=== PATIENT | female | born 1965 | race African-American/Black ===

== ENCOUNTER 2016-12-29 07:06 | Emergency (ER) | payer BC ==
[~2016-12-29] VITALS: Ht 170.2 cm; Wt 70.0 kg
[~2016-12-29 07:06] MED LIST: AMOX875T PO; METO25 PO
[2016-12-29 07:15] VITALS: BP 162/92; PULSE 78; RESP 16; TEMP 98.4; O2SAT 99
[2016-12-29] MEDS ORDERED: CLON.1 PO ×2 (07:20→07:26)
[2016-12-29] MEDS ORDERED: METO25TA3 PO ×2 (07:20→07:26)
[2016-12-29] MEDS ORDERED: LORA-392 PO (07:26)
--- NOTE | 2016-12-29 07:26 | PD ---
HPI Chief Complaint: Anxiety Time Seen by Provider: 07:19 Travel History International Travel<30 days: No Contact w/Intl Traveler<30days: No Traveled to known affect area: No History of Present Illness HPI 51-year-old female complains of anxiety and mental stress. Patient states that the condition has been building up recently. Patient denies any suicidal or homicidal ideation. Patient denies any headache. Patient denies any chest pain or shortness of breath. Patient denies abdominal pain. Patient denies any focal weakness or numbness of the extremity. Patient has history hypertension and taking clonidine and Lopressor. PFSH Past Medical History Cardiovascular Problems: Yes (HTN) Diminished Hearing: No Hypertension: Yes Immunizations Current: Yes Menopausal: Yes : 2 Para: 2 Social History Alcohol Use: Yes ( daily beer) Tobacco Use: No Substance Use: No Allergies-Medications (Allergen,Severity, Reaction): Coded Allergies: acetaminophen (Verified Allergy, Unknown, 12/29/16) codeine (Verified Allergy, Unknown, Itching, 12/29/16) hydromorphone (Verified Allergy, Unknown, 12/29/16) oxycodone (Verified Allergy, Unknown, 12/29/16) Reported Meds & Prescriptions Reported Meds & Active Scripts Active Ativan (Lorazepam) 0.5 Mg Tab 0.5 Mg PO Q8H PRN Metoprolol Tartrate 25 Mg Tab 25 Mg PO DAILY Catapres (Clonidine) 0.1 Mg Tab 0.1 Mg PO ONCE Review of Systems General / Constitutional: No: Fever Eyes: No: Visual changes HENT: No: Headaches Cardiovascular: No: Chest Pain or Discomfort Respiratory: No: Shortness of Breath Gastrointestinal: No: Abdominal Pain Genitourinary: No: Dysuria Musculoskeletal: No: Pain Skin: No Rash Neurologic: No: Weakness Psychiatric: No: Depression Endocrine: No: Polydipsia Hematologic/Lymphatic: No: Easy Bruising Physical Exam Narrative GENERAL: Well-nourished, well-developed patient. SKIN: Focused skin assessment warm/dry. HEAD: Normocephalic. EYES: No scleral icterus. No injection or drainage. NECK: Supple, trachea midline. No JVD or lymphadenopathy. CARDIOVASCULAR: Regular rate and rhythm without murmurs, gallops, or rubs. RESPIRATORY: Breath sounds equal bilaterally. No accessory muscle use. GASTROINTESTINAL: Abdomen soft, non-tender, nondistended. MUSCULOSKELETAL: No cyanosis, or edema. BACK: Nontender without obvious deformity. No CVA tenderness. Neurologic exam normal. Data Data Last Documented VS Vital Signs Date Time Temp Pulse Resp B/P Pulse Ox O2 Delivery O2 Flow Rate FiO2 12/29/16 07:15 98.4 78 16 162/92 99 MDM Medical Decision Making Medical Screen Exam Complete: Yes Emergency Medical Condition: Yes Differential Diagnosis Differential diagnosis including anxiety, adjustment disorder. Narrative Course 51-year-old female with anxiety. Patient's doing fine now. Patient does not want to see a counselor. Diagnosis Primary Impression: Anxiety Patient Instructions: General Instructions Additional Instructions: Ativan as needed. Follow-up with personal physician. Return as needed. Med/Other Pt SpecificInfo: Prescription(s) given Scripts Lorazepam (Ativan)0.5 Mg Tab0.5 Mg PO Q8H PRN (ANXIETY AND/OR AGITATION) #15 TAB Ref 0 Prov:Irving Looney MD 12/29/16 Metoprolol Tartrate 25 Mg Tab25 Mg PO DAILY #30 TAB Ref 0 Prov:Irving Looney MD 12/29/16 Clonidine (Catapres)0.1 Mg Tab0.1 Mg PO ONCE #60 TAB Ref 0 Prov:Irving Looney MD 12/29/16 Disposition: 01 DISCHARGE HOME Condition: Stable Irving Looney MD Dec 29, 2016 07:26
== END 2016-12-29 07:45 | disposition home or self-care (01) ==
LOC: NEPE 07:06
DX: F41.9 Anxiety disorder, unspecified (principal); I10 Essential (primary) hypertension; Z88.5 Allergy status to narcotic agent
CPT/HCPCS: 99284

== ENCOUNTER 2017-06-10 16:28 | Emergency (ER) | payer BC ==
[~2017-06-10] VITALS: Ht 170.2 cm; Wt 75.0 kg
[~2017-06-10 16:28] MED LIST changes: -AMOX875T PO; +CLON.1 PO; +LORA-392 PO; -METO25 PO; +METO25TA3 PO
[2017-06-10 16:30] VITALS: BP 210/100; PULSE 90; RESP 22; TEMP 98.4; O2SAT 98
[2017-06-10] MEDS ORDERED: SODIUM CHLOR 0.9% 1000 ML INJ 1,000 ML IV SCH (17:06)
[2017-06-10] MEDS ORDERED: SODIUM CHLORIDE 0.9% FLUSH 10 ML FLUSH IV FLUSH PRN (17:15)
--- NOTE | 2017-06-10 17:31 | PD ---
HPI Chief Complaint: Numbness/Tingling Time Seen by Provider: 16:51 Travel History International Travel<30 days: No Contact w/Intl Traveler<30days: No Traveled to known affect area: No History of Present Illness HPI 52-year-old Afro[place] female presents the emergency department with chest discomfort, and nausea and vomiting since this morning. Patient denies fever, chills, or other symptoms. Patient has history of anxiety. Was concerned she had bilateral upper arm tingling after vomiting. She does admit to hyperventilating. She continues to have generalized abdominal discomfort, nausea, and vomiting once in triage. Patient denies headache, sore throat, upper respiratory symptoms. Patient is allergic to acetaminophen, codeine, hydromorphone, and oxycodone. PFSH Past Medical History Anxiety: Yes Cardiovascular Problems: Yes (HTN) Diminished Hearing: No Hypertension: Yes Immunizations Current: Yes ?: Not Menopausal: Yes : 2 Para: 2 Past Surgical History Surgical History: No Previous Surgery Social History Alcohol Use: Yes ( daily beer) Tobacco Use: Yes (a pack a day ) Substance Use: No Allergies-Medications (Allergen,Severity, Reaction): Coded Allergies: acetaminophen (Verified Allergy, Unknown, 06/10/17) codeine (Verified Allergy, Unknown, Itching, 06/10/17) hydromorphone (Verified Allergy, Unknown, 06/10/17) oxycodone (Verified Allergy, Unknown, 06/10/17) Reported Meds & Prescriptions Reported Meds & Active Scripts Active Phenergan (Promethazine HCl) 25 Mg Tablet 25 Mg PO Q6H PRN Catapres (Clonidine) 0.1 Mg Tab 0.1 Mg PO ONCE Metoprolol Tartrate 25 Mg Tab 25 Mg PO DAILY Review of Systems Except as stated in HPI: all other systems reviewed are Neg General / Constitutional: No: Fever, Chills Eyes: No: Visual changes HENT: No: Headaches, Vertigo, Lightheadedness, Sore Throat, Rhinitis, Rhinorrhea, Congestion, Nosebleed, Neck Stiffness, Neck Pain, Dental Difficulties, Earache Cardiovascular: Positive: Chest Pain or Discomfort, No: Palpitations, Irregular Rhythm, Tachycardia, Diaphoresis, Syncope, Varicosities, Edema, Varicosities, Claudication Respiratory: No: Cough, Shortness of Breath, Wheezing Gastrointestinal: Positive: Nausea, Vomiting, No: Diarrhea, Abdominal Pain Genitourinary: No: Dysuria Musculoskeletal: No: Pain Skin: No Rash Neurologic: Positive: Paresthesia, No: Weakness Psychiatric: Positive: Anxiety, No: Depression, Suicidal Ideations, Homicidal Ideation Endocrine: No: Polydipsia Hematologic/Lymphatic: No: Easy Bruising Physical Exam Narrative GENERAL: Patient is extremely anxious and histrionic but otherwise no acute distress. SKIN: Warm and dry. Normal color. Normal turgor. No diaphoresis. HEAD: Atraumatic. Normocephalic. EYES: Pupils equal and round. No scleral icterus. No injection or drainage. ENT: No nasal bleeding or discharge. Mucous membranes pink and moist. Pharynx is clear. Airway is patent. NECK: Trachea midline. Supple and nontender.. CARDIOVASCULAR: Regular rate and rhythm. RESPIRATORY: No accessory muscle use. Clear to auscultation. Breath sounds equal bilaterally. GASTROINTESTINAL: Abdomen soft, mild to moderate diffuse tenderness, nondistended. Hepatic and splenic margins not palpable. No CVA tenderness MUSCULOSKELETAL: Extremities without clubbing, cyanosis, or edema. No obvious deformities. NEUROLOGICAL: Awake and alert. No obvious cranial nerve deficits. Motor grossly within normal limits. Five out of 5 muscle strength in the arms and legs. Normal speech. PSYCHIATRIC: Patient anxious; insight and judgment normal. Data Data Last Documented VS Vital Signs Date Time Temp Pulse Resp B/P (MAP) Pulse Ox O2 Delivery O2 Flow Rate FiO2 06/10/17 20:52 91 18 149/71 (97) 97 Room Air 06/10/17 16:30 98.4 Orders Orders Complete Blood Count With Diff (06/10/17 17:06) Comprehensive Metabolic Panel (06/10/17 17:06) Lipase (06/10/17 17:06) Prothrombin Time / Inr (Pt) (06/10/17 17:06) Act Partial Throm Time (Ptt) (06/10/17 17:06) Urinalysis - C+S If Indicated (06/10/17 17:06) Abdomen, Flat & Upright (06/10/17 ) Iv Access Insert/Monitor (06/10/17 17:06) Ecg Monitoring (06/10/17 17:06) Oximetry (06/10/17 17:06) Sodium Chlor 0.9% 1000 Ml Inj (Ns 1000 M (06/10/17 17:06) Sodium Chloride 0.9% Flush (Ns Flush) (06/10/17 17:15) Chest, Single Ap (06/10/17 17:06) Ckmb (Isoenzyme) Profile (06/10/17 17:06) Magnesium (Mg) (06/10/17 17:06) Troponin I (06/10/17 17:06) Lorazepam Inj (Ativan Inj) (06/10/17 17:45) Ondansetron Inj (Zofran Inj) (06/10/17 17:45) Hydralazine Inj (Apresoline Inj) (06/10/17 18:15) CKMB (06/10/17 17:20) CKMB% (06/10/17 17:20) Lorazepam Inj (Ativan Inj) (06/10/17 18:45) Prochlorperazine Inj (Compazine Inj) (06/10/17 18:45) Ckmb (Isoenzyme) Profile (06/10/17 19:34) Comprehensive Metabolic Panel (06/10/17 19:34) Troponin I (06/10/17 19:34) CKMB (06/10/17 20:00) CKMB% (06/10/17 20:00) Labs Laboratory Tests Test 06/10/17 17:20 06/10/17 18:20 06/10/17 20:00 White Blood Count 9.3 TH/MM3 Red Blood Count 4.20 MIL/MM3 Hemoglobin 13.4 GM/DL Hematocrit 37.0 % Mean Corpuscular Volume 88.0 FL Mean Corpuscular Hemoglobin 31.8 PG Mean Corpuscular Hemoglobin Concent 36.1 % Red Cell Distribution Width 13.5 % Platelet Count 248 TH/MM3 Mean Platelet Volume 7.8 FL Neutrophils (%) (Auto) 75.5 % Lymphocytes (%) (Auto) 17.6 % Monocytes (%) (Auto) 6.4 % Eosinophils (%) (Auto) 0.2 % Basophils (%) (Auto) 0.3 % Neutrophils # (Auto) 7.0 TH/MM3 Lymphocytes # (Auto) 1.6 TH/MM3 Monocytes # (Auto) 0.6 TH/MM3 Eosinophils # (Auto) 0.0 TH/MM3 Basophils # (Auto) 0.0 TH/MM3 CBC Comment AUTO DIFF Differential Comment AUTO DIFF CONFIRMED Platelet Estimate NORMAL Platelet Morphology Comment NORMAL Spherocytes 2+ Stomatocytes 1+ Prothrombin Time 10.4 SEC Prothromb Time International Ratio 1.0 RATIO Activated Partial Thromboplast Time 25.9 SEC Blood Urea Nitrogen 9 MG/DL 8 MG/DL Creatinine 0.60 MG/DL 0.55 MG/DL Random Glucose 73 MG/DL 79 MG/DL Total Protein 7.8 GM/DL 7.3 GM/DL Albumin 3.9 GM/DL 3.5 GM/DL Calcium Level 8.7 MG/DL 8.6 MG/DL Magnesium Level 1.8 MG/DL Alkaline Phosphatase 107 U/L 99 U/L Aspartate Amino Transf (AST/SGOT) 35 U/L 33 U/L Alanine Aminotransferase (ALT/SGPT) 31 U/L 27 U/L Total Bilirubin 0.3 MG/DL 0.4 MG/DL Sodium Level 132 MEQ/L 136 MEQ/L Potassium Level 3.6 MEQ/L 3.7 MEQ/L Chloride Level 96 MEQ/L 101 MEQ/L Carbon Dioxide Level 24.5 MEQ/L 25.1 MEQ/L Anion Gap 12 MEQ/L 10 MEQ/L Estimat Glomerular Filtration Rate 127 ML/MIN 140 ML/MIN Total Creatine Kinase 430 U/L 434 U/L Creatine Kinase MB 3.9 NG/ML 4.0 NG/ML Creatine Kinase MB % 0.9 % 0.9 % Troponin I LESS THAN 0.02 NG/ML LESS THAN 0.02 NG/ML Lipase 94 U/L Urine Color YELLOW Urine Turbidity CLEAR Urine pH 5.0 Urine Specific [place] 1.007 Urine Protein TRACE mg/dL Urine Glucose (UA) NEG mg/dL Urine Ketones NEG mg/dL Urine Occult Blood TRACE Urine Nitrite NEG Urine Bilirubin NEG Urine Urobilinogen LESS THAN 2.0 MG/DL Urine Leukocyte Esterase NEG Urine WBC LESS THAN 1 /hpf Urine Squamous Epithelial Cells 1 /hpf Urine Hyaline Casts 1 /lpf Urine Mucus FEW /lpf Microscopic Urinalysis Comment CULT NOT INDICATED MDM Medical Decision Making Medical Screen Exam Complete: Yes Emergency Medical Condition: Yes Medical Record Reviewed: Yes Differential Diagnosis Nausea vomiting. Anxiety. Cardiac syndrome. Narrative Course Patient is medically stable at time of exam. IV access was obtained and labs ordered including CBC, CMP, lipase, urinalysis, and cardiac panel. EKG is ordered showing a normal sinus rhythm without ST changes. This is reviewed with Dr. Nelson. Chest x-ray is ordered as well as abdominal flat and upright. Patient is given 1 mg lorazepam IV as well as 1 mg Zofran IV as well as 1000 mL normal saline bolus. Chest x-ray is unremarkable. Abdominal films unremarkable. CBC is unremarkable. Coag studies are normal. CMP shows sodium 132, chloride 96, random glucose 73, BUN/creatinine are normal. Total creatinine kinase is 4:30, CK-MB is 3.9, first troponin is less than 0.02. Urinalysis is unremarkable. She was given hydralazine 10 mg IV for her blood pressure. Patient given additional lorazepam 2 mg IV as well as Compazine 5 mg IV for ongoing nausea and dry heaving, and anxiety. Patient is unable to sleep and rest comfortably. Patient discussed with Dr. Pulido, who recommended repeat labs at 2000 hrs., and then reassess. 2100 hrs. the patient is reassessed and her blood pressure down 140/71 and she is resting comfortably in the bed. Repeat labs show troponin of 0.02., And creatinine kinase still at 434. The rest are improved. Patient is felt to be stable for discharge to home. She is given a refill of her metoprolol 25 mg daily, Catapres 0.1 mg one twice a day when necessary #60. And Phenergan 25 mg one every 6 hours when necessary nausea and vomiting #20. Patient is to be established with local primary care physician, and [facility] as recommended. Patient can return to emergency department if symptoms recur or worsen as needed. Diagnosis Primary Impression: Nausea and vomiting in adult Additional Impressions: Hypertension Qualified Codes: I10 - Essential (primary) hypertension Anxiety Referrals: [facility] Patient Instructions: 2 Gram Sodium Diet (DC), Acute Nausea and Vomiting (ED), General Instructions Additional Instructions: Patient is felt to be stable for discharge to home. She is given a refill of her metoprolol 25 mg daily, Catapres 0.1 mg one twice a day when necessary #60. And Phenergan 25 mg one every 6 hours when necessary nausea and vomiting #20. Patient is to be established with local primary care physician, and [facility] as recommended. Patient can return to emergency department if symptoms recur or worsen as needed. Med/Other Pt SpecificInfo: Prescription(s) given Scripts Promethazine (Phenergan) 25 Mg Tablet 25 MG PO Q6H Y for NAUSEA OR VOMITING, #20 TAB 0 Refills Prov: Harsha Nelson MD 06/10/17 Clonidine (Catapres) 0.1 Mg Tab 0.1 MG PO ONCE for Blood Pressure Management, #60 TAB 0 Refills Prov: Harsha Nelson MD 06/10/17 Metoprolol Tartrate (Metoprolol Tartrate) 25 Mg Tab 25 MG PO DAILY, #30 TAB 0 Refills Prov: Harsha Nelson MD 06/10/17 Disposition: 01 DISCHARGE HOME Condition: Stable Quintin Barnes Jun 10, 2017 17:31
--- NOTE | 2017-06-10 17:36 | RADRPT ---
EXAM DATE/TIME: 06/10/2017 17:14 [facility] COMPARISON: Report only CHEST SINGLE AP, September 29, 2013, 18:18. INDICATIONS : Vomiting with dizziness. MEDICAL HISTORY : Hypertension. Smoker. SURGICAL HISTORY : None. ENCOUNTER: Initial ACUITY: 2 days PAIN SCORE: 0/10 LOCATION: Bilateral chest FINDINGS: Trace scar at the right upper lobe, was described previously. Lungs are otherwise clear. No pleural e ffusion seen. No pneumothorax. Normal heart size. CONCLUSION: No evidence of acute cardiopulmonary disease. Lanre Nielsen MD on June 10, 2017 at 17:32 Board Certified Radiologist. This report was verified electronically.
--- NOTE | 2017-06-10 17:36 | RADRPT ---
EXAM DATE/TIME: 06/10/2017 17:16 [facility] COMPARISON: No previous studies available for comparison. INDICATIONS : Abdominal pain and vomiting. MEDICAL HISTORY : Hypertension. Smoker. SURGICAL HISTORY : None. ENCOUNTER: Initial ACUITY: 3 days PAIN SCORE: 4/10 LOCATION: Abdomen. FINDINGS: Supine and upright views of the abdomen were performed. The abdominal bowel gas pattern is normal. No air fluid levels are seen. No abnormal masses, calcifications, or organomegaly is seen. The visu alized lower lungs are clear. No evidence of free intraperitoneal gas. The osseous structures are u nremarkable. CONCLUSION: Benign-appearing abdomen. Lanre Nielsen MD on June 10, 2017 at 17:34 Board Certified Radiologist. This report was verified electronically.
[2017-06-10] MEDS ORDERED: ONDANSETRON HCL 4 MG/2 ML VIAL IV PUSH ONE (17:45)
[2017-06-10] MEDS ORDERED: LORazepam 2 MG/ML VIAL IV PUSH ONE ×2 (17:45→18:45)
[2017-06-10 18:01] VITALS: O2SAT 100
[2017-06-10 18:02] VITALS: BP 226/98; PULSE 81; RESP 18; O2SAT 100
[2017-06-10 18:03] LABS: BASOPHIL % 0.3 % (0.0-2.0); EOSINOPHIL % 0.2 % (0.0-4.0); HEMOGLOBIN 13.4 GM/DL (11.6-15.3); LYMPH % 17.6 % (9.0-44.0); LYMPHOCYTE # 1.6 TH/MM3 (1.0-4.8); MEAN CORPUSCULAR HEMOGLOBIN 31.8 PG (27.0-34.0); MEAN PLATELET VOLUME 7.8 FL (7.0-11.0); MONO % 6.4 % (0.0-8.0); MONOCYTE # 0.6 TH/MM3 (0-0.9); NEUT % 75.5 % (16.0-70.0); PLATELET COUNT 248 TH/MM3 (150-450); RED CELL DISTRIBUTION WIDTH 13.5 % (11.6-17.2); WHITE BLOOD COUNT 9.3 TH/MM3 (4.0-11.0)
[2017-06-10 18:08] LABS: PROTHROMBIN TIME - PATIENT 10.4 SEC (9.8-11.6)
[2017-06-10 18:10] LABS: MEAN CORPUSCULAR HGB CONC 36.1 % (32.0-36.0)
[2017-06-10] MEDS ORDERED: hydrALAZINE HCL 20 MG/ML VIAL IV PUSH ONE (18:15)
[2017-06-10 18:23] LABS: ALT (GPT) 31 U/L (10-53)
[2017-06-10 18:27] LABS: ALKALINE PHOSPHATASE 107 U/L (45-117); TOTAL BILIRUBIN ADULT 0.3 MG/DL (0.2-1.0); TOTAL PROTEIN 7.8 GM/DL (6.4-8.2); TROPONIN I LESS THAN 0.02 NG/ML (0.02-0.05)
[2017-06-10 18:31] LABS: SPHEROCYTES 2+ (NORMAL); STOMATOCYTES 1+ (NORMAL)
[2017-06-10 18:37] LABS: ALBUMIN 3.9 GM/DL (3.4-5.0); AST (GOT) 35 U/L (15-37); BICARBONATE 24.5 MEQ/L (21.0-32.0); BLOOD UREA NITROGEN 9 MG/DL (7-18); CALCIUM 8.7 MG/DL (8.5-10.1); CHLORIDE 96 MEQ/L (98-107); GLOMERULAR FILTRATION RATE 127 ML/MIN (>89); GLUCOSE,RANDOM 73 MG/DL (74-106); MAGNESIUM 1.8 MG/DL (1.5-2.5); SODIUM (NA) 132 MEQ/L (136-145)
[2017-06-10] MEDS ORDERED: PROCHLORPERAZINE INJ 10 MG/2 ML VIAL IV PUSH ONE (18:45)
[2017-06-10 19:13] LABS: BILIRUBIN, URINE NEG (NEG); BLOOD, URINE TRACE (NEG); GLUCOSE,URINE NEG (NEG); HYALINE CAST, URINE 1 /lpf (RARE); KETONE, URINE NEG (NEG); MUCUS URINE FEW /lpf (OCC); NITRITE,URINE NEG (NEG); SQUAMOUS EPITHELIAL CELL URINE 1 /hpf (0-5); URINE COLOR YELLOW (YELLW/STRAW); URINE LEUKOCYTE ESTERASE NEG (NEG)
[2017-06-10 19:14] VITALS: BP 155/86; PULSE 110; RESP 18; O2SAT 99
[2017-06-10 20:37] LABS: ALT (GPT) 27 U/L (10-53)
[2017-06-10 20:41] LABS: ALKALINE PHOSPHATASE 99 U/L (45-117); TOTAL BILIRUBIN ADULT 0.4 MG/DL (0.2-1.0); TOTAL PROTEIN 7.3 GM/DL (6.4-8.2); TROPONIN I LESS THAN 0.02 NG/ML (0.02-0.05)
[2017-06-10 20:52] VITALS: BP 149/71; PULSE 91; RESP 18; O2SAT 97
[2017-06-10] MEDS ORDERED: METO25TA3 PO (20:52)
[2017-06-10] MEDS ORDERED: PROM25TA10 PO (20:52)
[2017-06-10] MEDS ORDERED: CLON.1 PO (20:52)
[2017-06-10 21:02] LABS: ALBUMIN 3.5 GM/DL (3.4-5.0); AST (GOT) 33 U/L (15-37); BICARBONATE 25.1 MEQ/L (21.0-32.0); BLOOD UREA NITROGEN 8 MG/DL (7-18); CALCIUM 8.6 MG/DL (8.5-10.1); CHLORIDE 101 MEQ/L (98-107); CREATININE 0.55 MG/DL (0.50-1.00); GLOMERULAR FILTRATION RATE 140 ML/MIN (>89); GLUCOSE,RANDOM 79 MG/DL (74-106); SODIUM (NA) 136 MEQ/L (136-145)
--- NOTE | 2017-06-11 12:19 | EKG ---
Date Performed: 06/10/2017 Time Performed: 16:58:39 PTAGE: 52 years EKG: Sinus rhythm NORMAL ECG PREVIOUS TRACING 09/19/13 Since the prior tracing, there has been no significant change DOCTOR: Rubén Tena Interpretating Date/Time 06/11/2017 12:17:41
== END 2017-06-10 21:25 | disposition home or self-care (01) ==
LOC: NEPC 16:28
DX: R11.2 Nausea with vomiting, unspecified (principal); I10 Essential (primary) hypertension; F41.9 Anxiety disorder, unspecified; R07.89 Other chest pain; F17.200 Nicotine dependence, unspecified, uncomplicated; Z88.5 Allergy status to narcotic agent; Z88.8 Allergy status to other drugs, medicaments and biological substances
CPT/HCPCS: 71045; 74019; 80053; 81001; 82550; 82552; 83690; 83735; 84484; 85025; 85610; 85730; 93005; 96374; 96375; 96376; 99284; J0360; J0780; J2060; J2405; J7030

== ENCOUNTER 2017-06-28 13:12 | Observation (INO) | payer BC ==
[~2017-06-28] VITALS: Ht 170.2 cm; Wt 80.0 kg
[~2017-06-28 13:12] MED LIST changes: -LORA-392 PO; +PROM25TA10 PO
[2017-06-28] MEDS ORDERED: IOHEXOL 350 MG/ML 10 ML VIAL (for RAD DIAG) IVCONTRAST ONE (13:13)
[2017-06-28 13:16] VITALS: BP 122/66; PULSE 88; RESP 14; TEMP 98.4; O2SAT 99
[2017-06-28] MEDS ORDERED: SODIUM CHLOR 0.9% 1000 ML INJ 1,000 ML IV SCH ×2 (13:32→18:43)
--- NOTE | 2017-06-28 13:37 | PD ---
HPI Chief Complaint: Cold / Flu Symptoms Time Seen by Provider: 13:28 Travel History International Travel<30 days: No Contact w/Intl Traveler<30days: No Traveled to known affect area: No History of Present Illness HPI 52-year-old female presents for evaluation of abdominal pain, headache, nausea, vomiting, diarrhea, myalgias, chills. Symptoms started 3 days ago. She reports approximately 3 episodes of nonbloody emesis on a daily basis as well as 4-5 episodes of loose watery stools. She was seen here in May for evaluation nausea and vomiting and prescribed Phenergan which she has been taking with minimal relief. She has been using [id number] analgesics with minimal relief. Pain in her abdomen is a sharp pain which is constant, primarily periumbilical and lower quadrants. Denies any history of abdominal surgeries. She reports a very slight cough occasionally. Denies any nasal congestion, sore throat, rash or recent travel. Denies any recent antibiotic use. She has no other complaints at this time. She reports that she is postmenopausal. [facility] Past Medical History Anxiety: Yes Cardiovascular Problems: Yes (HTN) Diminished Hearing: No Hypertension: Yes Immunizations Current: Yes Menopausal: Yes : 2 Para: 2 Social History Alcohol Use: Yes ( daily beer) Tobacco Use: Yes (a pack a day ) Substance Use: No Allergies-Medications (Allergen,Severity, Reaction): Coded Allergies: acetaminophen (Verified Allergy, Unknown, 06/10/17) codeine (Verified Allergy, Unknown, Itching, 06/10/17) hydromorphone (Verified Allergy, Unknown, 06/10/17) oxycodone (Verified Allergy, Unknown, 06/10/17) Reported Meds & Prescriptions Reported Meds & Active Scripts Active Catapres (Clonidine) 0.1 Mg Tab 0.1 Mg PO ONCE Metoprolol Tartrate 25 Mg Tab 25 Mg PO DAILY Review of Systems Except as stated in HPI: all other systems reviewed are Neg Physical Exam Narrative GENERAL: Well-developed well-nourished female in no acute distress SKIN: Warm and dry. HEAD: Atraumatic. Normocephalic. EYES: Pupils equal and round. No scleral icterus. No injection or drainage. ENT: No nasal bleeding or discharge. Mucous membranes pink and moist. NECK: Trachea midline. No JVD. CARDIOVASCULAR: Regular rate and rhythm. No murmur appreciated. RESPIRATORY: No accessory muscle use. Clear to auscultation. Breath sounds equal bilaterally. GASTROINTESTINAL: Abdomen soft, generalized tenderness to palpation which appears to be most focally localized in the periumbilical region. There is right CVA tenderness present as well. MUSCULOSKELETAL: No obvious deformities. No clubbing. No cyanosis. No edema. NEUROLOGICAL: Awake and alert. No obvious cranial nerve deficits. Motor grossly within normal limits. Normal speech. PSYCHIATRIC: Appropriate mood and affect; insight and judgment normal. Data Data Last Documented VS Vital Signs Date Time Temp Pulse Resp B/P (MAP) Pulse Ox O2 Delivery O2 Flow Rate FiO2 06/28/17 13:16 98.4 88 14 122/66 (84) 99 Orders Orders Complete Blood Count With Diff (06/28/17 13:32) Comprehensive Metabolic Panel (06/28/17 13:32) Lipase (06/28/17 13:32) Urinalysis - C+S If Indicated (06/28/17 13:32) Ct Abd/Pel W Iv Contrast(Rout) (06/28/17 13:32) Iv Access Insert/Monitor (06/28/17 13:32) Ondansetron Inj (Zofran Inj) (06/28/17 13:45) Pantoprazole Inj (Protonix Inj) (06/28/17 13:45) Sodium Chlor 0.9% 1000 Ml Inj (Ns 1000 M (06/28/17 13:32) Al-Mag Hy-Si 40-40-4 Mg/Ml Liq (Mag-Al P (06/28/17 13:45) Ketorolac Inj (Toradol Inj) (06/28/17 13:45) Influenzae A/B Antigen (06/28/17 13:32) Morphine Inj (Morphine Inj) (06/28/17 13:45) Urine Culture (06/28/17 13:25) Metoclopramide Inj (Reglan Inj) (06/28/17 15:15) Ceftriaxone Inj (Rocephin Inj) (06/28/17 15:30) Iohexol 350 Inj (Omnipaque 350 Inj) (06/28/17 13:13) Admit Order (Ed Use Only) (06/28/17 17:39) Labs Laboratory Tests Test 06/28/17 13:25 06/28/17 14:05 Urine Color YELLOW Urine Turbidity HAZY Urine pH 5.5 Urine Specific [place] 1.013 Urine Protein 30 mg/dL Urine Glucose (UA) NEG mg/dL Urine Ketones NEG mg/dL Urine Occult Blood SMALL Urine Nitrite NEG Urine Bilirubin NEG Urine Urobilinogen LESS THAN 2.0 MG/DL Urine Leukocyte Esterase LARGE Urine RBC 4 /hpf Urine WBC 62 /hpf Urine WBC Clumps FEW Urine Squamous Epithelial Cells 2 /hpf Urine Bacteria OCC /hpf Urine Hyaline Casts 3 /lpf Microscopic Urinalysis Comment CULTURE INDICATED White Blood Count 14.9 TH/MM3 Red Blood Count 4.03 MIL/MM3 Hemoglobin 12.5 GM/DL Hematocrit 35.0 % Mean Corpuscular Volume 86.9 FL Mean Corpuscular Hemoglobin 31.1 PG Mean Corpuscular Hemoglobin Concent 35.7 % Red Cell Distribution Width 13.4 % Platelet Count 243 TH/MM3 Mean Platelet Volume 8.2 FL Neutrophils (%) (Auto) 80.1 % Lymphocytes (%) (Auto) 4.5 % Monocytes (%) (Auto) 14.7 % Eosinophils (%) (Auto) 0.4 % Basophils (%) (Auto) 0.3 % Neutrophils # (Auto) 11.9 TH/MM3 Lymphocytes # (Auto) 0.7 TH/MM3 Monocytes # (Auto) 2.2 TH/MM3 Eosinophils # (Auto) 0.1 TH/MM3 Basophils # (Auto) 0.1 TH/MM3 CBC Comment AUTO DIFF Differential Total Cells Counted 100 Neutrophils % (Manual) 62 % Band Neutrophils % 18 % Lymphocytes % 3 % Monocytes % 17 % Neutrophils # (Manual) 11.9 TH/MM3 Differential Comment FINAL DIFF MANUAL Toxic Granulation 1+ Toxic Vacuolation PRESENT Platelet Estimate NORMAL Platelet Morphology Comment NORMAL Blood Urea Nitrogen 18 MG/DL Creatinine 1.22 MG/DL Random Glucose 98 MG/DL Total Protein 8.8 GM/DL Albumin 2.9 GM/DL Calcium Level 8.8 MG/DL Alkaline Phosphatase 128 U/L Aspartate Amino Transf (AST/SGOT) 31 U/L Alanine Aminotransferase (ALT/SGPT) 18 U/L Total Bilirubin 0.7 MG/DL Sodium Level 126 MEQ/L Potassium Level 3.6 MEQ/L Chloride Level 91 MEQ/L Carbon Dioxide Level 24.0 MEQ/L Anion Gap 11 MEQ/L Estimat Glomerular Filtration Rate 56 ML/MIN Lipase 144 U/L [facility] Medical Decision Making Medical Screen Exam Complete: Yes Emergency Medical Condition: Yes Medical Record Reviewed: Yes Differential Diagnosis Colitis, diverticulitis, pyelonephritis, gastritis, dehydration, electrolyte abnormality, influenza Narrative Course The patient was given IV fluids, Protonix, Zofran, morphine, Toradol. She had some residual nausea and dry heaving and therefore Reglan was administered as well. Lab work, urinalysis, CT of the abdomen and pelvis has been ordered. Influenza antigen has been ordered. Lab work is notable for WBC, 14.9, sodium 126, chloride 91, GFR is 56 which is a significant decrease in comparison to her GFR in late May. Her urinalysis reveals 62 wbc's, few wbc clumps, 4 RBCs, culture pending. The patient will be given IV Rocephin. She will be admitted for further treatment. Diagnosis Primary Impression: Pyelonephritis Additional Impressions: Hyponatremia Acute kidney injury Leukocytosis Admitting Information Admitting Physician Requests: Admit Patient Instructions: General Instructions Departure Forms: Tests/Procedures Alex Tanner Jun 28, 2017 13:37
[2017-06-28] MEDS ORDERED: MORPHINE SULFATE 2 MG/ML INJ IV PUSH ONE (13:45)
[2017-06-28] MEDS ORDERED: ONDANSETRON HCL 4 MG/2 ML VIAL IVP ONE (13:45)
[2017-06-28] MEDS ORDERED: PANTOPRAZOLE SODIUM 40 MG VIAL IVP ONE (13:45)
[2017-06-28] MEDS ORDERED: KETOROLAC TROMETHAMINE 30 MG/ML (IVP) VIAL IV PUSH ONE (13:45)
[2017-06-28] MEDS ORDERED: ALUMINUM/MAGNESIUM/SIMETH 30 ML CUP PO ONE (13:45)
[2017-06-28 14:35] LABS: AUTOMATED NEUTROPHIL # 11.9 TH/MM3 (1.8-7.7); BASOPHIL # 0.1 TH/MM3 (0-0.2); BASOPHIL % 0.3 % (0.0-2.0); EOSINOPHIL # 0.1 TH/MM3 (0-0.4); EOSINOPHIL % 0.4 % (0.0-4.0); HEMOGLOBIN 12.5 GM/DL (11.6-15.3); LYMPH % 4.5 % (9.0-44.0); LYMPHOCYTE # 0.7 TH/MM3 (1.0-4.8); MEAN CELL VOLUME 86.9 FL (80.0-100.0); MEAN CORPUSCULAR HEMOGLOBIN 31.1 PG (27.0-34.0); MEAN CORPUSCULAR HGB CONC 35.7 % (32.0-36.0); MEAN PLATELET VOLUME 8.2 FL (7.0-11.0); MONO % 14.7 % (0.0-8.0); MONOCYTE # 2.2 TH/MM3 (0-0.9); NEUT % 80.1 % (16.0-70.0); PLATELET COUNT 243 TH/MM3 (150-450); RED BLOOD COUNT 4.03 MIL/MM3 (4.00-5.30); RED CELL DISTRIBUTION WIDTH 13.4 % (11.6-17.2); WHITE BLOOD COUNT 14.9 TH/MM3 (4.0-11.0)
[2017-06-28 14:50] LABS: BACTERIA, URINE OCC /hpf; BILIRUBIN, URINE NEG (NEG); BLOOD, URINE SMALL (NEG); GLUCOSE,URINE NEG (NEG); HYALINE CAST, URINE 3 /lpf (RARE); KETONE, URINE NEG (NEG); NITRITE,URINE NEG (NEG); PH, URINE 5.5 (5.0-8.5); SQUAMOUS EPITHELIAL CELL URINE 2 /hpf (0-5); URINE COLOR YELLOW (YELLW/STRAW); URINE LEUKOCYTE ESTERASE LARGE (NEG); WHITE BLOOD CELL CLUMPS FEW
[2017-06-28 14:56] LABS: ALBUMIN 2.9 GM/DL (3.4-5.0); ALT (GPT) 18 U/L (10-53); AST (GOT) 31 U/L (15-37); BLOOD UREA NITROGEN 18 MG/DL (7-18); CALCIUM 8.8 MG/DL (8.5-10.1); CHLORIDE 91 MEQ/L (98-107); CREATININE 1.22 MG/DL (0.50-1.00); GLOMERULAR FILTRATION RATE 56 ML/MIN (>89); GLUCOSE,RANDOM 98 MG/DL (74-106); SODIUM (NA) 126 MEQ/L (136-145)
[2017-06-28 14:57] LABS: ALKALINE PHOSPHATASE 128 U/L (45-117); TOTAL BILIRUBIN ADULT 0.7 MG/DL (0.2-1.0); TOTAL PROTEIN 8.8 GM/DL (6.4-8.2)
[2017-06-28] MEDS ORDERED: METOCLOPRAMIDE HCL 10 MG/2 ML VIAL IV PUSH ONE (15:15)
[2017-06-28] MEDS ORDERED: cefTRIAXone INJ 1,000 MG in SODIUM CHLORIDE 0.9% INJ 100 ML IV ONE (15:30)
[2017-06-28 16:31] LABS: BANDS 18 % (0-6); LYMPHOCYTES 3 % (9-44); MONOCYTES 17 % (0-8); NEUTROPHIL # MANUAL DIFF 11.9 TH/MM3 (1.8-7.7); POLYS (SEG NEUTROPHILS) 62 % (16-70)
[2017-06-28 16:33] LABS: TOXIC GRANULATION 1+ (NORMAL); TOXIC VACUOLATION PRESENT (NONE SEEN)
--- NOTE | 2017-06-28 16:44 | RADRPT ---
EXAM DATE/TIME: 06/28/2017 16:10 [place] COMPARISON: No previous studies available for comparison. INDICATIONS : Abdominal pain. IV CONTRAST: 86 cc Omnipaque 350 (iohexol) IV ORAL CONTRAST: No oral contrast ingested. RADIATION DOSE: 6.91 CTDIvol (mGy) MEDICAL HISTORY : Hypertension. SURGICAL HISTORY : None. ENCOUNTER: Initial ACUITY: 1 day PAIN SCALE: 6/10 LOCATION: Bilateral abdomen TECHNIQUE: Volumetric scanning of the abdomen and pelvis was performed. Using automated exposure control and ad justment of the mA and/or kV according to patient size, radiation dose was kept as low as reasonably achievable to obtain optimal diagnostic quality images. DICOM format image data is available electro nically for review and comparison. FINDINGS: LOWER LUNGS: The visualized lower lungs are clear. LIVER: Homogeneous density without lesion. There is no dilation of the biliary tree. No calcified gallston es. SPLEEN: Normal size without lesion. PANCREAS: Within normal limits. KIDNEYS: Normal in size and shape. There is no mass, stone or hydronephrosis. ADRENAL GLANDS: Within normal limits. VASCULAR: There is no aortic aneurysm. BOWEL/MESENTERY: The stomach, small bowel, and colon demonstrate no acute abnormality. There is no free intraperitone al air or fluid. ABDOMINAL WALL: Within normal limits. RETROPERITONEUM: There is no lymphadenopathy. BLADDER: No wall thickening or mass. REPRODUCTIVE: Large fibroid uterus with multiple calcifications. INGUINAL: There is no lymphadenopathy or hernia. MUSCULOSKELETAL: Moderate degenerative changes lumbar spine from the facets. CONCLUSION: 1. Large fibroid uterus, containing calcifications 2. Moderate degenerative changes largely facets. 3. No other etiology for abdominal pain. mJ Emerson MD FACR on June 28, 2017 at 16:33 Board Certified Radiologist. This report was verified electronically.
--- NOTE | 2017-06-28 17:20 | PD ---
Physical Exam Date Seen by Provider: Jun 28, 2017 Narrative This patient presents with flulike symptoms. She was seen initially in fast track. She was found to have a urinary tract infection as well as hyponatremia. She was then brought over to the medical positive for further evaluation and treatment. Data Data Last Documented VS Vital Signs Date Time Temp Pulse Resp B/P (MAP) Pulse Ox O2 Delivery O2 Flow Rate FiO2 06/28/17 13:16 98.4 88 14 122/66 (84) 99 Orders Orders Complete Blood Count With Diff (06/28/17 13:32) Comprehensive Metabolic Panel (06/28/17 13:32) Lipase (06/28/17 13:32) Urinalysis - C+S If Indicated (06/28/17 13:32) Ct Abd/Pel W Iv Contrast(Rout) (06/28/17 13:32) Iv Access Insert/Monitor (06/28/17 13:32) Ondansetron Inj (Zofran Inj) (06/28/17 13:45) Pantoprazole Inj (Protonix Inj) (06/28/17 13:45) Sodium Chlor 0.9% 1000 Ml Inj (Ns 1000 M (06/28/17 13:32) Al-Mag Hy-Si 40-40-4 Mg/Ml Liq (Mag-Al P (06/28/17 13:45) Ketorolac Inj (Toradol Inj) (06/28/17 13:45) Influenzae A/B Antigen (06/28/17 13:32) Morphine Inj (Morphine Inj) (06/28/17 13:45) Urine Culture (06/28/17 13:25) Metoclopramide Inj (Reglan Inj) (06/28/17 15:15) Ceftriaxone Inj (Rocephin Inj) (06/28/17 15:30) Iohexol 350 Inj (Omnipaque 350 Inj) (06/28/17 13:13) Labs Laboratory Tests Test 06/28/17 13:25 06/28/17 14:05 Urine Color YELLOW Urine Turbidity HAZY Urine pH 5.5 Urine Specific [place] 1.013 Urine Protein 30 mg/dL Urine Glucose (UA) NEG mg/dL Urine Ketones NEG mg/dL Urine Occult Blood SMALL Urine Nitrite NEG Urine Bilirubin NEG Urine Urobilinogen LESS THAN 2.0 MG/DL Urine Leukocyte Esterase LARGE Urine RBC 4 /hpf Urine WBC 62 /hpf Urine WBC Clumps FEW Urine Squamous Epithelial Cells 2 /hpf Urine Bacteria OCC /hpf Urine Hyaline Casts 3 /lpf Microscopic Urinalysis Comment CULTURE INDICATED White Blood Count 14.9 TH/MM3 Red Blood Count 4.03 MIL/MM3 Hemoglobin 12.5 GM/DL Hematocrit 35.0 % Mean Corpuscular Volume 86.9 FL Mean Corpuscular Hemoglobin 31.1 PG Mean Corpuscular Hemoglobin Concent 35.7 % Red Cell Distribution Width 13.4 % Platelet Count 243 TH/MM3 Mean Platelet Volume 8.2 FL Neutrophils (%) (Auto) 80.1 % Lymphocytes (%) (Auto) 4.5 % Monocytes (%) (Auto) 14.7 % Eosinophils (%) (Auto) 0.4 % Basophils (%) (Auto) 0.3 % Neutrophils # (Auto) 11.9 TH/MM3 Lymphocytes # (Auto) 0.7 TH/MM3 Monocytes # (Auto) 2.2 TH/MM3 Eosinophils # (Auto) 0.1 TH/MM3 Basophils # (Auto) 0.1 TH/MM3 CBC Comment AUTO DIFF Differential Total Cells Counted 100 Neutrophils % (Manual) 62 % Band Neutrophils % 18 % Lymphocytes % 3 % Monocytes % 17 % Neutrophils # (Manual) 11.9 TH/MM3 Differential Comment FINAL DIFF MANUAL Toxic Granulation 1+ Toxic Vacuolation PRESENT Platelet Estimate NORMAL Platelet Morphology Comment NORMAL Blood Urea Nitrogen 18 MG/DL Creatinine 1.22 MG/DL Random Glucose 98 MG/DL Total Protein 8.8 GM/DL Albumin 2.9 GM/DL Calcium Level 8.8 MG/DL Alkaline Phosphatase 128 U/L Aspartate Amino Transf (AST/SGOT) 31 U/L Alanine Aminotransferase (ALT/SGPT) 18 U/L Total Bilirubin 0.7 MG/DL Sodium Level 126 MEQ/L Potassium Level 3.6 MEQ/L Chloride Level 91 MEQ/L Carbon Dioxide Level 24.0 MEQ/L Anion Gap 11 MEQ/L Estimat Glomerular Filtration Rate 56 ML/MIN Lipase 144 U/L MDM Supervised Visit with SHELBIE: Yes Narrative Course I, Dr. Westbrook, have reviewed the advance practice practitioner's documentation and am in agreement, met with the patient face to face, made the diagnosis, and the medical decision making was done by me. *My assessment and Findings: Patient looks like she doesn't feel very well. Her abdomen is soft but diffusely tender. Please see Alex Tanner PA-C's note for results of laboratory and radiographic evaluation, ED course, final diagnosis and disposition Diagnosis Primary Impression: Pyelonephritis Additional Impressions: Acute kidney injury Hyponatremia Leukocytosis Patient Instructions: General Instructions Departure Forms: Tests/Procedures Isa Westbrook MD Jun 28, 2017 17:20
[2017-06-28] MEDS ORDERED: SODIUM CHLORIDE 0.9% FLUSH 10 ML FLUSH IV FLUSH PRN (18:45)
[2017-06-28 19:21] VITALS: BP 130/67; PULSE 78; RESP 18; TEMP 98.1; O2SAT 99
[2017-06-28] MEDS ORDERED: ZOFR4TAB PO (20:26)
[2017-06-28] MEDS ORDERED: BACT800T5 PO (20:27)
[2017-06-28] MEDS ORDERED: SODIUM CHLORIDE 0.9% FLUSH 10 ML FLUSH IV FLUSH SCH (21:00)
[2017-06-29] MEDS ORDERED: cefTRIAXone INJ 1,000 MG in SODIUM CHLORIDE 0.9% INJ 100 ML IV SCH (19:00)
== END 2017-06-28 20:27 | disposition home or self-care (01) ==
LOC: NEPK 13:12 → INTOOBSV 17:40 → NEDA 17:40
PROVIDERS: ADMIT Hospitalist; ATTEND Hospitalist
DX: N12 Tubulo-interstitial nephritis, not specified as acute or chronic (principal); E87.1 Hypo-osmolality and hyponatremia; N17.9 Acute kidney failure, unspecified; R51 Headache; R19.7 Diarrhea, unspecified; M79.1 Myalgia; D25.9 Leiomyoma of uterus, unspecified; I10 Essential (primary) hypertension; F41.9 Anxiety disorder, unspecified; F17.200 Nicotine dependence, unspecified, uncomplicated
CPT/HCPCS: 74177; 80053; 81001; 83690; 85007; 85027; 87077; 87086; 87186; 87804; 96361; 96365; 96366; 96375; 99285; C9113; G0378; J0696; J1885; J2270; J2405; J2765; J7030; Q9967

== ENCOUNTER 2017-10-15 10:47 | Emergency (ER) | payer BC ==
[~2017-10-15] VITALS: Ht 170.2 cm; Wt 70.0 kg
[~2017-10-15 10:47] MED LIST changes: +BACT800T5 PO; -PROM25TA10 PO; +ZOFR4TAB PO
[2017-10-15 10:55] VITALS: BP 163/85; PULSE 72; RESP 20; TEMP 98.8; O2SAT 99
[2017-10-15] MEDS ORDERED: SODIUM CHLORIDE 0.9% FLUSH 10 ML FLUSH IVF PRN (11:15)
--- NOTE | 2017-10-15 11:22 | PD ---
HPI Chief Complaint: Pain: Acute or Chronic Time Seen by Provider: 11:02 Travel History International Travel<30 days: No Contact w/Intl Traveler<30days: No Traveled to known affect area: No History of Present Illness HPI 52-year-old female with history of hypertension, chronic alcohol use, current smoker presents to the ED for evaluation of few days history of elevated blood pressure. Patient states that she took her blood pressure 3 days ago and it was ~200/100. She states that she had accompanying 4/10 chest pain with palpitations and shortness of breath. This pain lasted approximately 30 minutes before resolving spontaneously. She states that she was also feeling "jittery and shaking" at that time. States that this morning she began to have a similar shaky feeling which caused her to come to the ED. No chest pain today. She states that she took metoprolol this morning around 11:00 before presentation. She denies family history of OR. She does not take oral contraception. States that she is menopausal for many years. She does not have a primary care provider. PFSH Past Medical History Anxiety: Yes Cardiovascular Problems: Yes (HTN) Diminished Hearing: No Hypertension: Yes Immunizations Current: Yes ?: Not Menopausal: Yes : 2 Para: 2 Social History Alcohol Use: Yes ( daily beer) Tobacco Use: Yes (a pack a day ) Substance Use: No Allergies-Medications (Allergen,Severity, Reaction): Coded Allergies: codeine (Verified Allergy, Unknown, Itching, 06/10/17) hydromorphone (Verified Allergy, Unknown, 06/10/17) oxycodone (Verified Allergy, Unknown, 06/10/17) Reported Meds & Prescriptions Reported Meds & Active Scripts Active Catapres (Clonidine) 0.1 Mg Tab 0.1 Mg PO ONCE Metoprolol Tartrate 25 Mg Tab 25 Mg PO DAILY Bactrim DS (Sulfamethoxazole-Trimethoprim) 800-160 Mg Tab 1 Tab PO BID Zofran (Ondansetron HCl) 4 Mg Tab 4 Mg PO Q6HR PRN Review of Systems Except as stated in HPI: all other systems reviewed are Neg Physical Exam Narrative GENERAL: Well-nourished, well-developed -[place] female in no acute distress. SKIN: Focused skin assessment warm/dry. HEAD: Normocephalic. EYES: No scleral icterus. No injection or drainage. NECK: Supple, trachea midline. No JVD or lymphadenopathy. CARDIOVASCULAR: Regular rate and rhythm without murmurs, gallops, or rubs. CHEST: Nontender throughout without deformity or crepitus. No retractions. RESPIRATORY: Breath sounds equal bilaterally. Very mild end expiratory wheezing bilaterally. No accessory muscle use. GASTROINTESTINAL: Abdomen soft, non-tender, nondistended. Active bowel sounds. MUSCULOSKELETAL: No cyanosis, or edema. Walks with a normal gait. Moves easily from standing to sitting. BACK: Nontender without obvious deformity. No CVA tenderness. Data Data Last Documented VS Vital Signs Date Time Temp Pulse Resp B/P (MAP) Pulse Ox O2 Delivery O2 Flow Rate FiO2 10/15/17 15:02 64 20 100 10/15/17 10:55 98.8 Orders Orders Electrocardiogram (10/15/17 11:13) Ckmb (Isoenzyme) Profile (10/15/17 11:13) Complete Blood Count With Diff (10/15/17 11:13) Comprehensive Metabolic Panel (10/15/17 11:13) Magnesium (Mg) (10/15/17 11:13) Prothrombin Time / Inr (Pt) (10/15/17 11:13) Act Partial Throm Time (Ptt) (10/15/17 11:13) Troponin I (10/15/17 11:13) Ecg Monitoring (10/15/17 11:13) Bilateral Bp Monitoring (10/15/17 11:13) Iv Access Insert/Monitor (10/15/17 11:13) Oximetry (10/15/17 11:13) Sodium Chloride 0.9% Flush (Ns Flush) (10/15/17 11:15) Chest, Pa & Lat (10/15/17 11:13) Aspirin (Aspirin) (10/15/17 11:30) Sodium Chlorid 0.9% 500 Ml Inj (Ns 500 M (10/15/17 11:30) CKMB (10/15/17 11:35) CKMB% (10/15/17 11:35) Calcium Carbonate Chew (Tums Chew) (10/15/17 13:00) Troponin I (10/15/17 14:15) Ckmb (Isoenzyme) Profile (10/15/17 14:15) Al-Mag Hy-Si 40-40-4 Mg/Ml Liq (Mag-Al P (10/15/17 14:45) Lidocaine 2% Viscous (Xylocaine 2% Visco (10/15/17 14:45) Ondansetron Odt (Zofran Odt) (10/15/17 14:45) Sodium Chloride 0.9% Flush (Ns Flush) (10/15/17 14:45) CKMB (10/15/17 14:30) CKMB% (10/15/17 14:30) Ed Discharge Order (10/15/17 15:48) Labs Laboratory Tests Test 10/15/17 11:35 10/15/17 14:30 White Blood Count 6.2 TH/MM3 Red Blood Count 4.50 MIL/MM3 Hemoglobin 14.0 GM/DL Hematocrit 40.6 % Mean Corpuscular Volume 90.2 FL Mean Corpuscular Hemoglobin 31.0 PG Mean Corpuscular Hemoglobin Concent 34.4 % Red Cell Distribution Width 14.1 % Platelet Count 290 TH/MM3 Mean Platelet Volume 7.6 FL Neutrophils (%) (Auto) 68.0 % Lymphocytes (%) (Auto) 24.0 % Monocytes (%) (Auto) 7.2 % Eosinophils (%) (Auto) 0.4 % Basophils (%) (Auto) 0.4 % Neutrophils # (Auto) 4.2 TH/MM3 Lymphocytes # (Auto) 1.5 TH/MM3 Monocytes # (Auto) 0.4 TH/MM3 Eosinophils # (Auto) 0.0 TH/MM3 Basophils # (Auto) 0.0 TH/MM3 CBC Comment DIFF FINAL Differential Comment Prothrombin Time 10.4 SEC Prothromb Time International Ratio 1.0 RATIO Activated Partial Thromboplast Time 25.7 SEC Blood Urea Nitrogen 7 MG/DL Creatinine 0.74 MG/DL Random Glucose 62 MG/DL Total Protein 8.0 GM/DL Albumin 3.5 GM/DL Calcium Level 8.3 MG/DL Magnesium Level 2.0 MG/DL Alkaline Phosphatase 166 U/L Aspartate Amino Transf (AST/SGOT) 157 U/L Alanine Aminotransferase (ALT/SGPT) 83 U/L Total Bilirubin 0.6 MG/DL Sodium Level 137 MEQ/L Potassium Level 4.8 MEQ/L Chloride Level 103 MEQ/L Carbon Dioxide Level 19.5 MEQ/L Anion Gap 15 MEQ/L Estimat Glomerular Filtration Rate 99 ML/MIN Total Creatine Kinase 308 U/L 267 U/L Creatine Kinase MB 2.1 NG/ML 2.1 NG/ML Creatine Kinase MB % 0.7 % 0.8 % Troponin I LESS THAN 0.02 NG/ML LESS THAN 0.02 NG/ML MDM Medical Decision Making Medical Screen Exam Complete: Yes Emergency Medical Condition: Yes Differential Diagnosis Anxiety versus alcohol withdrawal versus angina versus ACS versus other Narrative Course 52-year-old female with history of hypertension, chronic alcohol use, current smoker presents to the ED for evaluation of few days history of elevated blood pressure. Patient states that she took her blood pressure 3 days ago and it was ~200/100. She states that she had accompanying 4/10 chest pain with palpitations and shortness of breath. This pain lasted approximately 30 minutes before resolving spontaneously. She states that she was also feeling "jittery and shaking" at that time. States that this morning she began to have a similar shaky feeling which caused her to come to the ED. No chest pain today. Vitals reviewed. Physical exam is reassuring. IV is established. Patient was administered p.o. aspirin. EKG rate 67, sinus rhythm. MT interval 168, QRS 91, QTc 424 ms. Normal axis. No acute ST changes. Reviewed by Dr. Arteaga. CXR: Linear area of parenchymal opacity identified in the right upper lobe, more prominent as compared to prior exam. CT evaluation recommended. Cardiac enzymes negative 2. No concerning abnormalities of the CBC, coags. CMP: 2-1 AST to ALT elevation noted, consistent with chronic alcohol use. Bilirubin 0.6. Calcium 8.3, r replaced orally. I discussed the results of the workup with the patient. I gave her a copy of her chest x-ray and recommended that she follow-up with the [facility] for outpatient follow-up. Patient's agreeable to this plan. She requests refills of her blood pressure medications. This was provided. Patient indicated understanding of instructions and is agreeable to care plan. She is stable and discharged home. Diagnosis Primary Impression: Chest pain at rest Additional Impressions: Abnormal finding on chest xray Anxiety Medication refill Referrals: [facility] Additional Instructions: Resume at home medications as previously prescribed. Follow-up with the [facility] for outpatient CT scan of the chest as discussed. Return to the ED for worsening symptoms or any urgent or emergent medical condition. Scripts Clonidine (Catapres) 0.1 Mg Tab 0.1 MG PO ONCE for Blood Pressure Management, #60 TAB 0 Refills Prov: Mynor Arteaga MD 10/15/17 Metoprolol Tartrate (Metoprolol Tartrate) 25 Mg Tab 25 MG PO DAILY, #30 TAB 0 Refills Prov: Mynor Arteaga MD 10/15/17 Disposition: 01 DISCHARGE HOME Condition: Stable Francesca Hernández Oct 15, 2017 11:22
[2017-10-15] MEDS ORDERED: SODIUM CHLORID 0.9% 500 ML INJ 500 ML IV ONE (11:30)
[2017-10-15] MEDS ORDERED: ASPIRIN 325 MG TAB PO ONE (11:30)
--- NOTE | 2017-10-15 11:42 | RADRPT ---
EXAM DATE: 10/15/2017 11:34 AM EDT AGE/SEX: 52 years / Female INDICATIONS: Shortness of breath and pain in middle and left side of chest. CLINICAL DATA: This is the patient's initial encounter. Patient reports that signs and symptoms have been present for 1 day and indicates a pain score of 6/10. MEDICAL/SURGICAL HISTORY: Hypertension. Diabetes. None. COMPARISON: [facility] [place], 06/10/2017. [facility] [place]ST [place]ING[place], 09/29/2013. . FINDINGS: PA lateral views of the chest demonstrate persistent linear area of parenchymal increased density ove rlying the right upper lobe. This appears slightly more prominent as compared to the prior exam. The lungs are otherwise clear. Heart size is normal. Pulmonary vasculature is normal. CONCLUSION: No abnormalities are identified within the left hemithorax. There is a linear area of parenchymal opa city identified within the right upper lobe which appears more prominent as compared to the prior exa m. Recommend further evaluation with CT to exclude a concerning pulmonary lesion. Electronically signed by: Jagruti Morgan MD 10/15/2017 11:41 AM EDT
[2017-10-15 11:52] LABS: AUTOMATED NEUTROPHIL # 4.2 TH/MM3 (1.8-7.7); BASOPHIL % 0.4 % (0.0-2.0); EOSINOPHIL % 0.4 % (0.0-4.0); HEMATOCRIT 40.6 % (35.0-46.0); LYMPHOCYTE # 1.5 TH/MM3 (1.0-4.8); MEAN CELL VOLUME 90.2 FL (80.0-100.0); MEAN CORPUSCULAR HGB CONC 34.4 % (32.0-36.0); MEAN PLATELET VOLUME 7.6 FL (7.0-11.0); MONO % 7.2 % (0.0-8.0); MONOCYTE # 0.4 TH/MM3 (0-0.9); PLATELET COUNT 290 TH/MM3 (150-450); RED CELL DISTRIBUTION WIDTH 14.1 % (11.6-17.2); WHITE BLOOD COUNT 6.2 TH/MM3 (4.0-11.0)
[2017-10-15 12:12] LABS: PROTHROMBIN TIME - PATIENT 10.4 SEC (9.8-11.6)
[2017-10-15 12:17] LABS: ALBUMIN 3.5 GM/DL (3.4-5.0); ALT (GPT) 83 U/L (10-53); AST (GOT) 157 U/L (15-37); BICARBONATE 19.5 MEQ/L (21.0-32.0); BLOOD UREA NITROGEN 7 MG/DL (7-18); CALCIUM 8.3 MG/DL (8.5-10.1); CHLORIDE 103 MEQ/L (98-107); CREATININE 0.74 MG/DL (0.50-1.00); GLOMERULAR FILTRATION RATE 99 ML/MIN (>89); GLUCOSE,RANDOM 62 MG/DL (74-106); SODIUM (NA) 137 MEQ/L (136-145)
[2017-10-15 12:20] LABS: ALKALINE PHOSPHATASE 166 U/L (45-117); TOTAL BILIRUBIN ADULT 0.6 MG/DL (0.2-1.0); TROPONIN I LESS THAN 0.02 NG/ML (0.02-0.05)
[2017-10-15] MEDS ORDERED: CALCIUM CARBONATE 500 MG CHEWABLE TAB CHEW ONE (13:00)
[2017-10-15 13:41] VITALS: BP 135/76; PULSE 74; RESP 18; O2SAT 98
[2017-10-15 13:43] VITALS: BP 135/76; PULSE 74; RESP 18; O2SAT 97
--- NOTE | 2017-10-15 14:34 | PD ---
Data Data Last Documented VS Vital Signs Date Time Temp Pulse Resp B/P (MAP) Pulse Ox O2 Delivery O2 Flow Rate FiO2 10/15/17 15:02 64 20 100 10/15/17 10:55 98.8 Orders Orders Electrocardiogram (10/15/17 11:13) Ckmb (Isoenzyme) Profile (10/15/17 11:13) Complete Blood Count With Diff (10/15/17 11:13) Comprehensive Metabolic Panel (10/15/17 11:13) Magnesium (Mg) (10/15/17 11:13) Prothrombin Time / Inr (Pt) (10/15/17 11:13) Act Partial Throm Time (Ptt) (10/15/17 11:13) Troponin I (10/15/17 11:13) Ecg Monitoring (10/15/17 11:13) Bilateral Bp Monitoring (10/15/17 11:13) Iv Access Insert/Monitor (10/15/17 11:13) Oximetry (10/15/17 11:13) Sodium Chloride 0.9% Flush (Ns Flush) (10/15/17 11:15) Chest, Pa & Lat (10/15/17 11:13) Aspirin (Aspirin) (10/15/17 11:30) Sodium Chlorid 0.9% 500 Ml Inj (Ns 500 M (10/15/17 11:30) CKMB (10/15/17 11:35) CKMB% (10/15/17 11:35) Calcium Carbonate Chew (Tums Chew) (10/15/17 13:00) Troponin I (10/15/17 14:15) Ckmb (Isoenzyme) Profile (10/15/17 14:15) Al-Mag Hy-Si 40-40-4 Mg/Ml Liq (Mag-Al P (10/15/17 14:45) Lidocaine 2% Viscous (Xylocaine 2% Visco (10/15/17 14:45) Ondansetron Odt (Zofran Odt) (10/15/17 14:45) Sodium Chloride 0.9% Flush (Ns Flush) (10/15/17 14:45) CKMB (10/15/17 14:30) CKMB% (10/15/17 14:30) Ed Discharge Order (10/15/17 15:48) Labs Laboratory Tests Test 10/15/17 11:35 10/15/17 14:30 White Blood Count 6.2 TH/MM3 Red Blood Count 4.50 MIL/MM3 Hemoglobin 14.0 GM/DL Hematocrit 40.6 % Mean Corpuscular Volume 90.2 FL Mean Corpuscular Hemoglobin 31.0 PG Mean Corpuscular Hemoglobin Concent 34.4 % Red Cell Distribution Width 14.1 % Platelet Count 290 TH/MM3 Mean Platelet Volume 7.6 FL Neutrophils (%) (Auto) 68.0 % Lymphocytes (%) (Auto) 24.0 % Monocytes (%) (Auto) 7.2 % Eosinophils (%) (Auto) 0.4 % Basophils (%) (Auto) 0.4 % Neutrophils # (Auto) 4.2 TH/MM3 Lymphocytes # (Auto) 1.5 TH/MM3 Monocytes # (Auto) 0.4 TH/MM3 Eosinophils # (Auto) 0.0 TH/MM3 Basophils # (Auto) 0.0 TH/MM3 CBC Comment DIFF FINAL Differential Comment Prothrombin Time 10.4 SEC Prothromb Time International Ratio 1.0 RATIO Activated Partial Thromboplast Time 25.7 SEC Blood Urea Nitrogen 7 MG/DL Creatinine 0.74 MG/DL Random Glucose 62 MG/DL Total Protein 8.0 GM/DL Albumin 3.5 GM/DL Calcium Level 8.3 MG/DL Magnesium Level 2.0 MG/DL Alkaline Phosphatase 166 U/L Aspartate Amino Transf (AST/SGOT) 157 U/L Alanine Aminotransferase (ALT/SGPT) 83 U/L Total Bilirubin 0.6 MG/DL Sodium Level 137 MEQ/L Potassium Level 4.8 MEQ/L Chloride Level 103 MEQ/L Carbon Dioxide Level 19.5 MEQ/L Anion Gap 15 MEQ/L Estimat Glomerular Filtration Rate 99 ML/MIN Total Creatine Kinase 308 U/L 267 U/L Creatine Kinase MB 2.1 NG/ML 2.1 NG/ML Creatine Kinase MB % 0.7 % 0.8 % Troponin I LESS THAN 0.02 NG/ML LESS THAN 0.02 NG/ML MDM Supervised Visit with SHELBIE: Yes Narrative Course I, Dr. Arteaga, have reviewed the advance practice practitioner's documentation and am in agreement, met with the patient face to face, made the diagnosis, and the medical decision making was done by me. *My assessment and Findings: Patient seen and examined by me in addition to Saeed Hernández, 52-year-old female presents emergency department with quite atypical and chronic chest pain. She does have a history of reflux and anxiety. I think that the serial troponins and a follow-up with a primary care physician is appropriate for this patient. I have ordered a GI cocktail for her as well. Agree with the documentation by Leesa Edgar. Scripts Clonidine (Catapres) 0.1 Mg Tab 0.1 MG PO ONCE for Blood Pressure Management, #60 TAB 0 Refills Prov: Mynor Arteaga MD 10/15/17 Metoprolol Tartrate (Metoprolol Tartrate) 25 Mg Tab 25 MG PO DAILY, #30 TAB 0 Refills Prov: Mynor Arteaga MD 10/15/17 Condition: Stable Mynor Arteaga MD Oct 15, 2017 14:34
[2017-10-15] MEDS ORDERED: ONDANSETRON ODT 4 MG TAB PO ONE (14:45)
[2017-10-15] MEDS ORDERED: LIDOCAINE VISCOUS 2% SOLN 15 ML UDC PO ONE (14:45)
[2017-10-15] MEDS ORDERED: SODIUM CHLORIDE 0.9% FLUSH 10 ML FLUSH IV FLUSH PRN (14:45)
[2017-10-15] MEDS ORDERED: ALUMINUM/MAGNESIUM/SIMETH 30 ML CUP PO ONE (14:45)
[2017-10-15 15:02] VITALS: PULSE 64; RESP 20; O2SAT 100
--- NOTE | 2017-10-15 15:04 | EKG ---
Date Performed: 10/15/2017 Time Performed: 11:10:24 PTAGE: 52 years EKG: Sinus rhythm NORMAL ECG PREVIOUS TRACING : 06/10/2017 16.58 Since the previous tracing, no significant change noted DOCTOR: Yan Parker Interpretating Date/Time 10/15/2017 15:03:44
[2017-10-15 15:43] LABS: TROPONIN I LESS THAN 0.02 NG/ML (0.02-0.05)
[2017-10-15] MEDS ORDERED: METO25TA3 PO (15:53)
[2017-10-15] MEDS ORDERED: CLON.1 PO (15:53)
== END 2017-10-15 16:45 | disposition home or self-care (01) ==
LOC: NEPC 10:47
DX: R07.89 Other chest pain (principal); R00.2 Palpitations; R06.02 Shortness of breath; K21.9 Gastro-esophageal reflux disease without esophagitis; F41.9 Anxiety disorder, unspecified; R91.8 Other nonspecific abnormal finding of lung field; I10 Essential (primary) hypertension; Z76.0 Encounter for issue of repeat prescription
CPT/HCPCS: 71046; 80053; 82550; 82552; 83735; 84484; 85025; 85610; 85730; 93005; 96360; 96361; 99285; J7040